=== PATIENT | male | born 1950 | race Caucasian/White ===

== ENCOUNTER 2020-02-09 08:37 | Day surgery (SDC) | payer MEDICARE, OTHER ==
[~2020-02-09] VITALS: Ht 180.3 cm; Wt 87.9 kg
[~2020-02-09 08:37] MED LIST: BENA20 PO; Pravachol40 MG PO; TAMS.4ER PO
--- NOTE | 2020-02-09 09:33 | NUR ---
Ambulatory in Day Surgery. Patient states colon prep results clear. History, Chart, Medications and Allergies reviewed before start of procedure. Lungs clear T/O to Auscultation. Patient confirms NPO status and agrees with scheduled surgery. Pre-Op teaching done. Pt verbalizes understanding. Patient States Post-Procedure ride home has been arranged.
--- NOTE | 2020-02-09 09:56 | NUR ---
02/09/20 0956 Pauly Contreras History, Chart, Medications and Allergies reviewed before start of procedure. PATIENT CONFIRMS NPO STATUS AND AGREES WITH SCHEDULED PROCEDURE. MONITOR INTACT WITH CONTINUOUS PULSE OXIMETRY AND INTERMITTENT BP. O2 VIA N/C INTACT THROUGHOUT SEDATION/PROCEDURE. 3-LEAD EKG REVIEWED WITH PHYSICIAN PRIOR TO START OF PROCEDURE. PATIENT DETERMINED TO BE ASA APPROPRIATE FOR PROPOFOL SEDATION PRIOR TO START OF PROCEDURE BY DR. JAMES.
--- NOTE | 2020-02-09 11:16 | NUR ---
Patient up to Ambulate independently. Gait steady. Discharge instructions reviewed with patient. Patient verbalizes understanding. Copy given to patient to take home. Patient States Post-Procedure ride home has been arranged. Discharged via wheelchair to private car for ride home. ALL BELONINGS RETURNED TO PATIENT.
== END 2020-02-09 23:17 | disposition home or self-care (01) ==
LOC: ORSCMMR 08:37 → ORD 08:37 → ORSCMMR 08:39 → ORD 09:30
PROVIDERS: Internal Medicine Gastroenterology
PROC: 0DBM8ZX Excision of Descending Colon, Via Natural or Artificial Opening Endoscopic, Diagnostic (ICD-10-PCS; principal; 2020-02-09 09:30)
PROC: 0DBN8ZX Excision of Sigmoid Colon, Via Natural or Artificial Opening Endoscopic, Diagnostic (ICD-10-PCS; principal; 2020-02-09 09:30)
DX: Z12.11 Encounter for screening for malignant neoplasm of colon (principal); Z86.010 Personal history of colon polyps; D12.5 Benign neoplasm of sigmoid colon; D12.4 Benign neoplasm of descending colon; K63.5 Polyp of colon; I10 Essential (primary) hypertension; E78.00 Pure hypercholesterolemia, unspecified; Z79.899 Other long term (current) drug therapy
CPT/HCPCS: 88305; J2704; J7120

== ENCOUNTER → 2023-02-20 | Outpatient (CLI) | payer MEDICARE, OTHER | LOC: LAB SHORT 17:20 → LAB 17:20 | DX: R32 Unspecified urinary incontinence (principal) | CPT/HCPCS: 87086 ==

== ENCOUNTER 2023-12-27 13:16 | Inpatient (IN) | payer MEDICARE, OTHER ==
[~2023-12-27] VITALS: Ht 177.8 cm; Wt 85.5 kg
[~2023-12-27 13:16] MED LIST changes: +Benazepril HCl10 MG PO
[2023-12-27] MEDS ORDERED: HYDROmorphone HCl/Pf 1MG SYR IV ONE (14:05)
[2023-12-27] MEDS ORDERED: Ketorolac Tromethamine 15mg Vial IV ONE (15:40)
[2023-12-27] MEDS ORDERED: HYDROmorphone HCl/Pf 1MG SYR IV PRN (15:40)
[2023-12-27] MEDS ORDERED: Acetaminophen 500 MG Tab PO ONE (15:40)
[2023-12-27 16:36] LABS: BASOPHILS ABSOLUTE AUTO 0.03 K/mm3 (0.00-0.23); BASOPHILS PERCENT AUTO 0 % (0-2); EOSINOPHILS PERCENT AUTO 0 % (0-6); Hematocrit 38.3 % (37.0-53.0); Hemoglobin 12.9 g/dL (13.5-17.5); IMMATURE GRAN ABSOLUTE AUTO 0.05 K/mm3 (0.00-0.10); IMMATURE GRAN PERCENT AUTO 1 % (0-1); LYMPHOCYTES PERCENT AUTO 4 % (21-46); MONOCYTES ABSOLUTE AUTO 0.28 K/mm3 (0.16-1.47); MONOCYTES PERCENT AUTO 3 % (4-13); Mean Corpuscular HGB 32.3 pg (26.0-34.0); Mean Corpuscular HGB Conc 33.7 g/dL (31.5-36.5); Mean Corpuscular Volume 96 fL (80-100); Mean Platelet Volume 9.8 fL (9.1-12.4); NEUTROPHILS ABSOLUTE AUTO 10.02 K/mm3 (1.96-9.15); NEUTROPHILS PERCENT AUTO 93 % (41-73); Platelet Count 200 K/mm3 (150-400); RDW Coefficient Variation 12.6 % (11.7-14.2); RDW Standard Deviation 44.6 fL (35.1-46.3); Red Blood Cell Count 3.99 M/mm3 (4.30-5.90); White Blood Cell Count 10.78 K/mm3 (4.00-11.30)
[2023-12-27] MEDS ORDERED: OxyCODONE HCL 5 MG TAB PO PRN (17:00)
[2023-12-27] MEDS ORDERED: FentaNYL Citrate 50 MCG/ML 2 ML Injection IV PRN (17:00)
[2023-12-27] MEDS ORDERED: Acetaminophen 325 MG TABLET PO PRN (17:00)
[2023-12-27] MEDS ORDERED: Ondansetron HCl 2 MG / ML 2ML Vial IV PRN (17:00)
[2023-12-27] MEDS ORDERED: FLU VACC TS2024-25(6MOS UP)/PF 45 MCG/0.5 ML SYRINGE IM PRN (17:00)
[2023-12-27 17:06] LABS: Albumin, Blood 3.4 g/dL (3.4-5.0); Albumin/Globulin Ratio 1.1 (0.8-1.8); Bilirubin, Total 0.5 mg/dL (0.1-1.0); Bun/Creatinine Ratio 19.6 (12.0-20.0); Calcium, Blood 8.6 mg/dL (8.5-10.1); Creatinine, Blood 0.71 mg/dL (0.60-1.20); Potassium, Blood 4.3 mmol/L (3.5-5.5); Total Protein, Blood 6.4 g/dL (6.4-8.2)
[2023-12-27] MEDS ORDERED: Ketorolac Tromethamine 15mg Vial IV PRN (18:35)
--- NOTE | 2023-12-27 19:07 | NUR ---
ADMISSION NOTE PATIENT A/OX4, ABLE TO MAKE NEEDS KNOWN. SPOUSE, SNEHA, AT BEDSIDE. PATIENT ADMITTED FOR FALL AND RIGHT HIP FX. PATIENT STATES HE IS VEGAN FOR THE LAST 6 MONTHS. PATIENT COMPLAINING OF PAIN UPON ADMISSION TO ROOM 327, PRN ROXICODONE ADMINISTERED PER MAR. PLANS TO HAVE SURGERY TOMORROW, NPO AT MIDNIGHT. BEDREST ORDERED, HISTORY OF INCONTINENCE BUT ALSO ABLE TO USE URINAL. PATIENT COMPLAINING OF INTERMITTENT MUSCLE SPASMS. NO OTHER CONCERNS AT THIS TIME.
[2023-12-27] MEDS ORDERED: Cyclobenzaprine HCl 10 MG Tab PO PRN (19:35)
[2023-12-27 21:00] VITALS: BP 139/82
[2023-12-27] MEDS ORDERED: Tamsulosin HCl 0.4 MG Cap PO SCH (21:00)
[2023-12-27] MEDS ORDERED: NS 1,000 ML IV SCH (23:30)
[2023-12-28 04:07] VITALS: BP 122/69
[2023-12-28] MEDS ORDERED: Omeprazole 20 MG CapCR PO SCH (06:00)
--- NOTE | 2023-12-28 06:18 | NUR ---
Patient alert and oriented, VSS, resting in bed overnight on room air. PRN pain medication given twice per request, tolerated well. NS @ 75 mL/hr tolerating well to left AC PIV. Male external wicking system setup, no urine output overnight; bladder scan at 0620 displayed ~260 mL present, patient denies urge to void. Patient kept NPO except for medications since midnight in preparation for surgery today.
[2023-12-28 06:32] LABS: Hematocrit 34.8 % (37.0-53.0); Hemoglobin 11.8 g/dL (13.5-17.5); Mean Corpuscular HGB 32.9 pg (26.0-34.0); Mean Corpuscular HGB Conc 33.9 g/dL (31.5-36.5); Mean Corpuscular Volume 97 fL (80-100); Mean Platelet Volume 10.2 fL (9.1-12.4); Platelet Count 196 K/mm3 (150-400); RDW Coefficient Variation 12.8 % (11.7-14.2); RDW Standard Deviation 45.8 fL (35.1-46.3); Red Blood Cell Count 3.59 M/mm3 (4.30-5.90); White Blood Cell Count 7.67 K/mm3 (4.00-11.30)
[2023-12-28 07:38] VITALS: BP 118/66
[2023-12-28] MEDS ORDERED: Pravastatin Sodium 20 MG Tab PO SCH ×2 (09:00→21:00)
[2023-12-28] MEDS ORDERED: Lisinopril 10 MG Tab PO SCH (09:00)
[2023-12-28 14:47] VITALS: BP 153/83
[2023-12-28] MEDS ORDERED: CELEBREX200 MG PO (16:19)
[2023-12-28] MEDS ORDERED: Pravastatin Sod80 MG PO (16:20)
--- NOTE | 2023-12-28 17:08 | NUR ---
CALLED DR WAITE PT SPOUSE STATED DR WAITE WAS GOING TO ORDER TRACTION. STILL NO ORDER FOR THAT. SPOKE TO DR LEBRON AT THE BEDSIDE, SHE ASKED RN TO CALL ORTHO. CALLED DR WAITE AND RECIEVED A VERBAL ORDER FOR BUCKS TRACTION 5 LBS. CALLED [employer] WHO IS BRINGING UP THE DEVICE.
--- NOTE | 2023-12-28 18:05 | NUR ---
SHIFT SUMMARY- BUCKS TRACTION INITIATED ON THE PT PER MD ORDERS WITH 5LB WEIGHT. PT SEEMS TO BE TOLLERATING IT WELL. HE STATES THE PAIN IS NO WORSEWITH IT. SPOUSE IS AT THE BEDSIDE. SPOUSE STATES THEY HAVE A SECOND HOME IN [place] AND ASKED THAT DR LEBRON SEND A TRANSFER REQUEST THERE WELL. THE PT REQUIRES A NEUROSURGEON, AND COBRA TRANSFER REQUESTS HAVE BEEN MET WITH LACK OF AVAILABLE BEDS FOR TRANSFER. PT ASKED THAT THE DR SEND A REQUEST FOR TRANSFER TO [facility] WHERE THEY HAVE A FRIEND THAT IS AN ER DOCTOR. SHE PROVIDED CONTACT INFO THAT WAS PLACED IN THE FRONT OF THE PT CHART. FOR THE PT, HE HAS A DIET ORDER, VSS, HE STATES THE PAIN SEEMS WELL MANAGED AT THIS TIME. THE RIGHT HIP IS SWOLLEN AND LARGER THAN THE LEFT. PT GROIN WAS SHAVED AND PUREWICK WAS PLACED LATE TODAY. PER THE PT SPOUSE HE IS INCONTINENT OF BLADDER, WET ATTENDS CHANGED X1 AND PT VOIDED IN THE URINAL ONCE TODAY. PT IN BED, CALL LIGHT IN REACH NO S&S OF DISTRESS IVF INFUSING AT THIS TIME.
[2023-12-28 19:23] VITALS: BP 132/73
[2023-12-28] MEDS ORDERED: Tamsulosin HCl 0.4 MG Cap PO SCH (21:00)
[2023-12-28 21:14] LABS: SARS-Cov-2 (COVID-19) PCR, MMC NEGATIVE (NEGATIVE)
[2023-12-29 03:43] VITALS: BP 117/63
[2023-12-29 05:40] LABS: BASOPHILS ABSOLUTE AUTO 0.02 K/mm3 (0.00-0.23); BASOPHILS PERCENT AUTO 0 % (0-2); EOSINOPHILS ABSOLUTE AUTO 0.06 K/mm3 (0.00-0.68); EOSINOPHILS PERCENT AUTO 1 % (0-6); Hematocrit 31.2 % (37.0-53.0); Hemoglobin 10.3 g/dL (13.5-17.5); IMMATURE GRAN ABSOLUTE AUTO 0.02 K/mm3 (0.00-0.10); IMMATURE GRAN PERCENT AUTO 0 % (0-1); LYMPHOCYTES ABSOLUTE AUTO 0.96 K/mm3 (0.84-5.20); LYMPHOCYTES PERCENT AUTO 15 % (21-46); MONOCYTES ABSOLUTE AUTO 0.63 K/mm3 (0.16-1.47); MONOCYTES PERCENT AUTO 10 % (4-13); Mean Corpuscular HGB 32.6 pg (26.0-34.0); Mean Corpuscular Volume 99 fL (80-100); Mean Platelet Volume 10.1 fL (9.1-12.4); NEUTROPHILS ABSOLUTE AUTO 4.75 K/mm3 (1.96-9.15); NEUTROPHILS PERCENT AUTO 74 % (41-73); Platelet Count 157 K/mm3 (150-400); RDW Coefficient Variation 12.9 % (11.7-14.2); RDW Standard Deviation 46.4 fL (35.1-46.3); Red Blood Cell Count 3.16 M/mm3 (4.30-5.90); White Blood Cell Count 6.44 K/mm3 (4.00-11.30)
[2023-12-29 06:17] LABS: Albumin, Blood 2.7 g/dL (3.4-5.0); Bilirubin, Total 0.6 mg/dL (0.1-1.0); Bun/Creatinine Ratio 22.8 (12.0-20.0); Creatinine, Blood 0.7 mg/dL (0.60-1.20); Globulin, Blood 2.7 g/dL (2.2-4.0); Magnesium, Blood 1.8 mg/dL (1.6-2.4); Potassium, Blood 4.2 mmol/L (3.5-5.5); Total Protein, Blood 5.4 g/dL (6.4-8.2)
--- NOTE | 2023-12-29 06:41 | NUR ---
NO ACUTE CHANGES OVERNIGHT, PAIN MANAGED WITH PRN PO MEDS. VSS. POSSIBLE TRANSFER TO [facility] IN [place].
[2023-12-29 07:26] VITALS: BP 142/73
[2023-12-29 08:39] VITALS: BP 142/73
--- NOTE | 2023-12-29 13:24 | NUR ---
PT HAD A BED AT [facility]- THERE WERE ISSUES WITH THE TRANSPORT IT IS A LONG DISTANCE WITH SEVERAL HOSPITALS [place]. COBRA TRANSFER WAS STOPPED. PT STATED HIS PAIN WAS AT A 5/10 MEDICATED WITH OXY TYLENOL AND TORADOL. PT STATES THE PAIN IS DOWN TO 2/10 ON FOLLOW UP. PT SEEMS TO BE TOLLERATING THE RTRACTION FAIRLY WELL AT THIS TIME.
[2023-12-29 14:27] VITALS: BP 103/49
[2023-12-29 14:28] VITALS: BP 101/57
--- NOTE | 2023-12-29 15:22 | NUR ---
UPDATE THIS RN CALLED THE NUMBER ON FACESHEET FOR MEDICARE- [employer]. TRYING TO CONTACT INSURANCE TO FIGURE OUT WHAT HOSPITAL WE COULD SEND PATIENT TO FOR SURGERY. NO ANSWER. VOICEMAIL STATES OFFICE IS OPEN SUNDAY THROUGH SUNDAY 8AM-4PM CENTRAL/MOUNTAIN TIME. UNABLE TO TALK TO SOMEONE TODAY ABOUT ISSUE.
--- NOTE | 2023-12-29 18:30 | NUR ---
SHIFT SUMMARY- PT AND SPOUSE IN THE ROOM, STATED PER DR SUN THE SURGERY IS PLANNED FOR TOMORROW MORNING AT 1000. WILL MAKE THE PT NPO AT MIDNIGHT WITH THIS PLAN. THERE IS NO ORDER AT THIS TIME FOR THAT. PT IN BED SITTING UP EATING DINNER. PT STATES THE PAIN IS WELL MANAGED WITH THE MEDICATIONS AVAILABLE. REPOSITIONED Q2 THE PT ALLOWED. TRACTION IS IN PLACE, SKIN CHECK WAS COMPLETED ON THE RLE. THERE IS EDEMA PRESENT IN THE LEG, REPOSITIONED THE EGGCRATE BOOT OF THE TRACTION DEVICE TO APPLY PRESSURE TO DIFFERENT SPOTS ON THE LEG. PT TOLLERATED THAT WELL. PT DID NOT TOLLERATE BEING ROLLED TO CHANGE THE ATTENDS AND THE WET RENTERIA PAD WHEN THE PUREWICK LEAKED. GIL CARE COMPLETED AND NEW APPLIANCE WAS APPLIED AND SEEMS TO BE WORKING WELL WITH NO LEAK AT THIS TIME.
[2023-12-29 19:19] VITALS: BP 129/65
[2023-12-30] VITALS (7 sets, daily range): BP systolic 130–142; BP diastolic 67–75
--- NOTE | 2023-12-30 06:12 | NUR ---
NO ACUTE CHANGES OVERNIGHT. VSS. PAIN MANAGED WITH PRN PO AND IV MEDS. BUCKS TRACTION IN PLACE. PLAN TO TRANSFER TO [facility] FOR SURGERY.
--- NOTE | 2023-12-30 09:00 | NUR ---
pt laying in bed watching tv, a/ox4, flat affect, cooperative with care, follows commands well, denies pain as long as he isn't moving, unable to have bed moved to sitting position due to pain, has 5lbs bucks traction in place, lungs are clear t/o, on r/a, resp even and unlabored, no cough noted, hrr, no edeama noted, ppp+1, cap refill <3 sec, can wiggle toes on right foot, piv to lac infusing ns at 75mls/hr, site is clear and patent, btx4, reports last bm 2 days ago, voids via wicking system, skin c/w/d, moves upper arms, and left leg, josefina, call light in reach.
--- NOTE | 2023-12-30 14:43 | NUR ---
notified of no BM in four days, recieved orders for bowel care.
[2023-12-30] MEDS ORDERED: Polyethylene Glycol 3350 17 gm PO PRN (14:45)
--- NOTE | 2023-12-30 18:11 | NUR ---
pt has been medicated throughout the day, visitors in to visit, waiting on room to transfer him, no acute changes this shift. call light in reach.
[2023-12-30] MEDS ORDERED: Docusate Sodium 100 MG Cap PO SCH (21:00)
== END 2023-12-30 22:00 | disposition short-term general hospital (02) | DRG 536 ==
LOC: ER 13:16 → MEDS 17:50
PROVIDERS: Emergency Medicine; Hospitalist; Internal Medicine; Nurse Practitioner Acute Care; ADMIT Student in an Organized Health Care Education/Training Program
DX: S72.141A Displaced intertrochanteric fracture of right femur, initial encounter for closed fracture (principal); G91.2 (Idiopathic) normal pressure hydrocephalus; W18.30XA Fall on same level, unspecified, initial encounter; N40.0 Benign prostatic hyperplasia without lower urinary tract symptoms; I10 Essential (primary) hypertension; Z98.890 Other specified postprocedural states; E78.00 Pure hypercholesterolemia, unspecified; Z79.899 Other long term (current) drug therapy; Z96.642 Presence of left artificial hip joint
CPT/HCPCS: 36415; 70450; 72192; 73502; 73552; 76377; 80053; 83735; 85025; 85027; 94762; 96374; 96375; 99284-25; A9270; J1170; J1885; J7030; U0002

== ENCOUNTER → 2024-09-17 | Outpatient (CLI) | payer MEDICARE, OTHER ==
[~2024-09-17] MED LIST changes: +CELEBREX200 MG PO; +Pravastatin Sod80 MG PO
[2024-09-17 18:51] LABS: Hematocrit 45.6 % (37.0-53.0); Hemoglobin 15.3 g/dL (13.5-17.5); Mean Corpuscular HGB Conc 33.6 g/dL (31.5-36.5); Mean Corpuscular Volume 99 fL (80-100); NRBC ABSOLUTE 0.00 K/mm3 (0.00-0.02); NRBC Auto 0.0 /100 WBC (0.0-0.2); Platelet Count 180 K/mm3 (150-400); RDW Coefficient Variation 13.0 % (11.7-14.2); RDW Standard Deviation 47.2 fL (35.1-46.3)
[2024-09-17 19:16] LABS: Alanine Aminotransfer (ALT/SGP 40.0 U/L (12-78); Albumin, Blood 3.9 g/dL (3.4-5.0); Albumin/Globulin Ratio 1.1 (0.8-1.8); Anion Gap 8.0 mmol/L (3-11); Aspartate Aminotrans (AST/SGOT 13.0 U/L (12-37); BASOPHILS ABSOLUTE MAN 0.00 K/mm3 (0.00-0.23); BASOPHILS PERCENT MAN 0 % (0-2); Bilirubin, Total 0.7 mg/dL (0.1-1.0); Blood Urea Nitrogen 19.0 mg/dL (8-24); CO2, Blood 26.0 mmol/L (21-32); Calcium, Blood 8.8 mg/dL (8.5-10.1); Chloride, Blood 109.0 mmol/L (98-108); Creatinine, Blood 0.84 mg/dL (0.60-1.20); EOSINOPHILS ABSOLUTE MAN 0.14 K/mm3 (0.00-0.68); EOSINOPHILS PERCENT MAN 2 % (0-6); Ferritin, Serum 82.0 ng/mL (26-388); Globulin, Blood 3.5 g/dL (2.2-4.0); Glucose, Blood 94.0 mg/dL (70-99); LYMPHOCYTES ABSOLUTE MAN 0.85 K/mm3 (0.84-5.20); LYMPHOCYTES PERCENT MAN 12 % (21-46); MONOCYTES ABSOLUTE MAN 0.64 K/mm3 (0.16-1.47); MONOCYTES PERCENT MAN 9 % (4-13); NEUTROPHILS ABSOLUTE MAN 5.51 K/mm3 (1.96-9.15); Potassium, Blood 4.6 mmol/L (3.5-5.5); SEG NEUTROPHILS PERCENT MAN 77 % (41-73); Sodium, Blood 138.0 mmol/L (136-145); Total Iron Binding Capacity 296.0 ug/dL (250-450); Total Protein, Blood 7.4 g/dL (6.4-8.2)
== END ==
LOC: LAB SHORT 17:25 → LAB 17:25
PROVIDERS: Student in an Organized Health Care Education/Training Program
DX: D64.9 Anemia, unspecified (principal); R89.9 Unspecified abnormal finding in specimens from other organs, systems and tissues; E83.51 Hypocalcemia
CPT/HCPCS: 80053; 82306; 82728; 82977; 83540; 83550; 83970; 85007; 85027